=== PATIENT | female | born 1990 | race Caucasian/White ===

== ENCOUNTER 2016-11-17 16:58 | Emergency (ER) | payer OTHER ==
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
[2016-11-17] MEDS ORDERED: ceFAZolin 1,000 MG VIAL IM STA (17:20)
[2016-11-17] MEDS ORDERED: DIPH,PERTUS(ACELL)TETVAC-LF 0.5 ML VIAL IM ONE (17:20)
[2016-11-17 22:17] VITALS: BP 139/88; PULSE 108; RESP 18; TEMP 97.3
== END 2016-11-17 22:15 | disposition home or self-care (01) ==
LOC: EC 16:58
DX: S61.512A Laceration without foreign body of left wrist, initial encounter (principal); F32.9 Major depressive disorder, single episode, unspecified; F10.129 Alcohol abuse with intoxication, unspecified; F17.200 Nicotine dependence, unspecified, uncomplicated; W26.0XXA Contact with knife, initial encounter
CPT/HCPCS: 99285; 12004; 90471; 96372; 82075; 81025; 80306; 90715; J0690

== ENCOUNTER → 2018-03-14 | Outpatient (CLI) | payer OTHER, BC ==
--- NOTE | 2018-03-14 14:09 | US ---
EXAMINATION TYPE: US transvaginal DATE OF EXAM: 03/14/2018 COMPARISON: NONE CLINICAL HISTORY: Amenorrhea N91.2. Patient states she has not had a period since September 2017 with 2 epi sodes of spotting since then, 1, para 1 TECHNIQUE: Transvaginal exam only per ordering physician. Date of LMP: September 2017 EXAM MEASUREMENTS: Uterus: 6.3 x 3.9 x 5.1 cm Endometrial Stripe: 1.3 cm Right Ovary: 4.2 x 2.9 x 2.7 cm Left Ovary: 4.2 x 2.1 x 2.7 cm 1. Uterus: retroverted, heterogeneous 2. Endometrium: borderline thickened, hypervascular 3. Right Ovary: multiple follicles 4. Left Ovary: multiple follicles, question peripheral orientation of the follicles 5. Bilateral Adnexa: wnl 6. Posterior cul-de-sac: free fluid IMPRESSION: Borderline abnormal thickening of the endometrial stripe. There is free fluid in the pelv is. 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
== END | disposition home or self-care (01) ==
LOC: RADUSWWP 09:03
PROVIDERS: ATTEND Family Medicine
DX: R93.89 Abnormal findings on diagnostic imaging of other specified body structures (principal)
CPT/HCPCS: 76830

== ENCOUNTER 2024-08-25 09:49 | Emergency (ER) | payer BC, OTHER ==
[2024-08-25 09:53] VITALS: TEMP 98.4
--- NOTE | 2024-08-25 10:19 | ED ---
Lower Extremity Injury HPI - General Chief Complaint: Extremity Injury, Lower Stated Complaint: L ankle injury Time Seen by Provider: 08/25/24 09:55 Source: patient, RN notes reviewed Mode of arrival: ambulatory Limitations: no limitations - History of Present Illness Initial Comments: 34-year-old female presents emergency department complaint left ankle injury. Patient states that she was playing laser tag and rolled her ankle. Patient states she had some discomfort was able to walk around but states pain worsened overnight denies any paresthesias patient offers no other complaints - Related Data Home Medications Medication Instructions Recorded Confirmed No Known Home Medications 04/03/15 11/17/16 Allergies Allergy/AdvReac Type Severity Reaction Status Date / Time No Known Allergies Allergy Verified 08/25/24 09:54 Review of Systems ROS Statement: Those systems with pertinent positive or pertinent negative responses have been documented in the HPI. ROS Other: All systems not noted in ROS Statement are negative. Past Medical History Past Medical History: No Reported History History of Any Multi-Drug Resistant Organisms: None Reported Past Surgical History: No Surgical Hx Reported Past Psychological History: ADD/ADHD Smoking Status: Former smoker Past Alcohol Use History: Occasional Past Drug Use History: None Reported General Exam Limitations: no limitations General appearance: alert, in no apparent distress Head exam: Present: atraumatic, normocephalic, normal inspection Eye exam: Present: normal appearance, PERRL, EOMI. Absent: scleral icterus, conjunctival injection, periorbital swelling ENT exam: Present: normal exam, normal oropharynx, mucous membranes moist Neck exam: Present: normal inspection, full ROM. Absent: tenderness, meningismus, lymphadenopathy Respiratory exam: Present: normal lung sounds bilaterally. Absent: respiratory distress, wheezes, rales, rhonchi, stridor Cardiovascular Exam: Present: regular rate, normal rhythm, normal heart sounds. Absent: systolic murmur, diastolic murmur, rubs, gallop, clicks Extremities exam: Present: other (Ankle there is moderate tenderness in the lateral malleoli region, no foot tenderness no proximal tib-fib tenderness neurovascular intact) Course Vital Signs 08/25/24 09:51 Temperature 98.4 F Pulse Rate 88 Respiratory 20 Rate Blood Pressure 135/83 O2 Sat by Pulse 99 Oximetry Medical Decision Making - Medical Decision Making Was pt. sent in by a medical professional or institution (, PA, CNC SPECIALIST, urgent care, hospital, or senior care...) When possible be specific @ -No Did you speak to anyone other than the patient for history (EMS, parent, family, police, friend...)? What history was obtained from this source @ -No Did you review nursing and triage notes (agree or disagree)? Why? @ -I reviewed and agree with nursing and triage notes Were old charts reviewed (outside hosp., previous admission, EMS record, old EKG, old radiological studies, urgent care reports/EKG's, senior care records)? Report findings @ -No old charts were reviewed Differential Diagnosis (chest pain, altered mental status, abdominal pain women, abdominal pain men, vaginal bleeding, weakness, fever, dyspnea, syncope, headache, dizziness, GI bleed, back pain, seizure, CVA, palpatations, mental health, musculoskeletal)? @ -Ankle sprain ankle fracture EKG interpreted by me (3pts min.). @ -None X-rays interpreted by me (1pt min.). @ -X-ray left ankle showing no acute fracture or malalignment CT interpreted by me (1pt min.). @ -None done U/S interpreted by me (1pt. min.). @ -None done What testing was considered but not performed or refused? (CT, X-rays, U/S, labs)? Why? @ -None What meds were considered but not given or refused? Why? @ -None Did you discuss the management of the patient with other professionals (professionals i.e. , PA, CNC SPECIALIST, lab, RT, psych nurse, healthcare social worker, backhaul driver, teacher, unclaimed property officer, test case developer)? Give summary @ -No Was smoking cessation discussed for >3mins.? @ -No Was critical care preformed (if so, how long)? @ -No Were there social determinants of health that impacted care today? How? (Homelessness, low income, unemployed, alcoholism, drug addiction, transportation, low edu. Level, literacy, decrease access to med. care, senior living, re hab)? @ -No Was there de-escalation of care discussed even if they declined (Discuss DNR or withdrawal of care, Hospice)? DNR status @ -No What co-morbidities impacted this encounter? (DM, HTN, Smoking, COPD, CAD, Cancer, CVA, ARF, Chemo, Hep., AIDS, mental health diagnosis, sleep apnea, morbid obesity)? @ -None Was patient admitted / discharged? Hospital course, mention meds given and route, prescriptions, significant lab abnormalities, going to OR and other pertinent info. @Discharge patient has left ankle sprain stirrup Aircast was applied patient will follow-up PCP, orthopedics as needed. Undiagnosed new problem with uncertain prognosis? @ -No Drug Therapy requiring intensive monitoring for toxicity (Heparin, Nitro, Insulin, Cardizem)? @ -No Were any procedures done? @ -No Diagnosis/symptom? @ -Left ankle sprain Acute, or Chronic, or Acute on Chronic? @ -Acute Uncomplicated (without systemic symptoms) or Complicated (systemic symptoms)? @ -Uncomplicated Side effects of treatment? @ -No Exacerbation, Progression, or Severe Exacerbation? @ -No Poses a threat to life or bodily function? How? (Chest pain, [place], [place], pneumonia, PE, COPD, DKA, ARF, appy, cholecystitis, CVA, Diverticulitis, Homicidal, Suicidal, threat to staff... and all critical care pts) @ -No Disposition Clinical Impression: Left ankle sprain Disposition: HOME SELF-CARE Condition: Stable Instructions (If sedation given, give patient instructions): Ankle Sprain (ED) Additional Instructions: Please return to the Emergency Department if symptoms worsen or any other concerns. Is patient prescribed a controlled substance at d/c from ED?: No Referrals: None,Stated [Primary Care Provider] - 1-2 days Time of Disposition: 11:22
--- NOTE | 2024-08-25 11:08 | XR ---
EXAMINATION TYPE: XR ankle complete LT DATE OF EXAM: 08/25/2024 10:11 AM COMPARISON: None. CLINICAL INDICATION: Female, 34 years old with history of pain, pain TECHNIQUE: 3 view(s) obtained. FINDINGS: Ankle mortise is intact. No acute fracture or dislocation evident. Soft tissues are normal. Follow up exams can be performed 7-10 days from acute trauma for continued pain. IMPRESSION: 1. No acute osseous abnormality left ankle. [facility], , 08/25/2024 11:05 AM
[2024-08-25 11:34] VITALS: BP 117/77; PULSE 68; RESP 17
== END 2024-08-25 11:42 | disposition home or self-care (01) ==
LOC: EC 09:49
DX: S93.402A Sprain of unspecified ligament of left ankle, initial encounter (principal); Z87.891 Personal history of nicotine dependence; X50.9XXA Other and unspecified overexertion or strenuous movements or postures, initial encounter
CPT/HCPCS: 73610; 99283; L4350